=== PATIENT | male | born 1975 | race Caucasian/White ===

== ENCOUNTER 2021-05-08 18:13 | Emergency (ER) | payer OTHER ==
[~2021-05-08] VITALS: Ht 172.7 cm; Wt 81.7 kg
[~2021-05-08 18:13] MED LIST: ACETAMINOPHEN-1 EAC1 PO; CEPHALEXIN 500500 M3 PO
[2021-05-08 19:36] LABS: ABSOLUTE BASOPHILS 0.1 thou/uL (0.0-0.2); ABSOLUTE EOSINOPHILS 0.1 thou/uL (0.0-0.7); ABSOLUTE LYMPHOCYTES 1.9 thou/uL (0.8-5.3); ABSOLUTE MONOCYTES 0.6 thou/uL (0.0-1.2); ABSOLUTE NEUTROPHILS 6.5 thou/uL (1.6-8.1); BASOPHILS 0.9 %; EOSINOPHILS 1.4 %; HEMATOCRIT 45.1 % (42.0-52.0); HEMOGLOBIN 14.9 gm/dL (14.0-18.0); LYMPHOCYTES 20.7 %; MCH 30.8 pg (26.0-34.0); MCHC 33.1 g/dL (28.0-37.0); MCV 93.1 fL (80.0-100.0); MONOCYTES 6.7 %; MPV 9.1 fl. (7.2-11.1); NUCLEATED RBCS 0 /100WBC; PLATELET COUNT* 159 thou/uL (150-400); POLYS 70.3 %; RBC 4.84 mil/uL (4.50-6.00); RDW-CV 14.9 % (10.5-14.5); WBC 9.2 thou/uL (4.0-11.0)
[2021-05-08 19:37] LABS: URINE BILIRUBIN NEGATIVE (Negative); URINE BLOOD NEGATIVE (Negative); URINE CLARITY CLEAR; URINE COLOR YELLOW; URINE GLUCOSE-RANDOM 3+ (Negative); URINE KETONES NEGATIVE (Negative); URINE LEUKOCYTES-REFLEX NEGATIVE (Negative); URINE NITRITE-REFLEX NEGATIVE (Negative); URINE PROTEIN TRACE (Negative); URINE SPECIFIC GRAVITY 1.015 (1.005-1.030)
[2021-05-08 19:39] LABS: AMP/METHAMP Negative (Negative); BARBITURATES Negative (Negative); BENZODIAZEPINES Negative (Negative); COCAINE Negative (Negative); METHADONE Negative (Negative); OPIATES Negative (Negative); PCP Negative (Negative); THC POSITIVE (Negative)
[2021-05-08 19:54] LABS: CALCIUM 8.5 mg/dL (8.5-10.1); CREATININE 0.9 mg/dL (0.6-1.3); POTASSIUM 3.9 mmol/L (3.5-5.1)
[2021-05-08 19:59] LABS: ALBUMIN 3.4 g/dL (3.4-5.0); TOTAL BILIRUBIN 0.8 mg/dL (<0.1-1.0); TOTAL PROTEIN 8.4 g/dL (6.4-8.2)
[2021-05-08 21:00] VITALS: BP 154/79
[2021-05-09] MEDS ORDERED: CIPRO500 M1 PO (11:31)
== END 2021-05-08 21:00 | disposition left against medical advice (07) ==
LOC: M.ERS 18:13
PROVIDERS: Nurse Practitioner Family
DX: R10.84 Generalized abdominal pain (principal); K70.30 Alcoholic cirrhosis of liver without ascites; R11.0 Nausea; F17.210 Nicotine dependence, cigarettes, uncomplicated; E11.9 Type 2 diabetes mellitus without complications

== ENCOUNTER 2021-05-09 10:09 | Emergency (ER) | payer OTHER ==
[~2021-05-09] VITALS: Ht 172.7 cm; Wt 81.7 kg
[2021-05-09 11:11] LABS: ABSOLUTE BASOPHILS 0.1 thou/uL (0.0-0.2); ABSOLUTE EOSINOPHILS 0.1 thou/uL (0.0-0.7); ABSOLUTE LYMPHOCYTES 1.4 thou/uL (0.8-5.3); ABSOLUTE MONOCYTES 0.7 thou/uL (0.0-1.2); ABSOLUTE NEUTROPHILS 5.8 thou/uL (1.6-8.1); BASOPHILS 0.6 %; EOSINOPHILS 1.5 %; HEMATOCRIT 42.7 % (42.0-52.0); HEMOGLOBIN 14.1 gm/dL (14.0-18.0); LYMPHOCYTES 17.6 %; MCH 30.8 pg (26.0-34.0); MCHC 33.2 g/dL (28.0-37.0); MCV 92.8 fL (80.0-100.0); MONOCYTES 8.7 %; MPV 9.2 fl. (7.2-11.1); NUCLEATED RBCS 0 /100WBC; PLATELET COUNT* 129 thou/uL (150-400); POLYS 71.6 %; RDW-CV 14.8 % (10.5-14.5); WBC 8.1 thou/uL (4.0-11.0)
[2021-05-09 11:22] LABS: CALCIUM 8.2 mg/dL (8.5-10.1); CREATININE 0.8 mg/dL (0.6-1.3); POTASSIUM 4.1 mmol/L (3.5-5.1)
[2021-05-09 11:26] LABS: ALBUMIN 3.1 g/dL (3.4-5.0); TOTAL PROTEIN 7.7 g/dL (6.4-8.2)
[2021-05-09] MEDS ORDERED: CIPRO500 M1 PO (11:31)
[2021-05-09 12:00] VITALS: BP 169/111
== END 2021-05-09 12:03 | disposition home or self-care (01) ==
LOC: M.ERS 10:09
PROVIDERS: Physician Assistant
DX: R10.31 Right lower quadrant pain (principal); R11.2 Nausea with vomiting, unspecified; E11.9 Type 2 diabetes mellitus without complications; F17.210 Nicotine dependence, cigarettes, uncomplicated; Z88.0 Allergy status to penicillin

== ENCOUNTER 2021-05-12 08:21 | Emergency (ER) | payer OTHER ==
[~2021-05-12] VITALS: Ht 172.7 cm; Wt 81.7 kg
[~2021-05-12 08:21] MED LIST changes: +CIPRO500 M1 PO
[2021-05-12 08:29] VITALS: BP 154/103
[2021-05-12 09:01] LABS: ABSOLUTE BASOPHILS 0.1 thou/uL (0.0-0.2); ABSOLUTE EOSINOPHILS 0.3 thou/uL (0.0-0.7); ABSOLUTE LYMPHOCYTES 2.3 thou/uL (0.8-5.3); ABSOLUTE NEUTROPHILS 8.8 thou/uL (1.6-8.1); BASOPHILS 0.5 %; EOSINOPHILS 2.1 %; HEMATOCRIT 41.6 % (42.0-52.0); LYMPHOCYTES 18.5 %; MCHC 33.6 g/dL (28.0-37.0); MCV 92.3 fL (80.0-100.0); MONOCYTES 7.9 %; MPV 9.4 fl. (7.2-11.1); NUCLEATED RBCS 0 /100WBC; PLATELET COUNT* 155 thou/uL (150-400); RDW-CV 14.6 % (10.5-14.5); WBC 12.4 thou/uL (4.0-11.0)
[2021-05-12 09:05] LABS: CALCIUM 8.4 mg/dL (8.5-10.1); CREATININE 0.9 mg/dL (0.6-1.3); POTASSIUM 4.4 mmol/L (3.5-5.1)
[2021-05-12 09:09] LABS: ALBUMIN 3.3 g/dL (3.4-5.0); TOTAL BILIRUBIN 1.2 mg/dL (<0.1-1.0); TOTAL PROTEIN 8.2 g/dL (6.4-8.2)
[2021-05-12 10:29] LABS: URINE BILIRUBIN NEGATIVE (Negative); URINE BLOOD NEGATIVE (Negative); URINE CLARITY CLEAR; URINE COLOR YELLOW; URINE GLUCOSE-RANDOM 3+ (Negative); URINE KETONES NEGATIVE (Negative); URINE LEUKOCYTES-REFLEX NEGATIVE (Negative); URINE NITRITE-REFLEX NEGATIVE (Negative); URINE PROTEIN NEGATIVE (Negative); URINE SPECIFIC GRAVITY 1.015 (1.005-1.030)
[2021-05-12 11:03] VITALS: BP 145/64
--- NOTE | 2021-05-12 15:28 | EKG ---
[place] [address] ELECTROCARDIOGRAM REPORT Name: JANET JACKSON LIZY Room: [facility]#: [id number] Admission: 05/12/21 Attend Phys: Discharge: 05/12/21 Date of : 71 Date of Service: 05/12/21899 Report #: [id number] THIS REPORT FOR: //name// [facility] ED Test Date: 2021-05-12 Test Time: 09:00:41 Pat Name: JANET JACKSON Department: Room: [facility] Gender: M Product Picker: TDS : 1975 Requested By: Jean-Paul Mccullough Order Number: [id number] MD: Dayday Montoya Measurements Intervals [place] Rate: 104 P: 66 GA: 150 QRS: -8 QRSD: 86 T: 76 QT: 367 QTc: 483 Interpretive Statements Sinus tachycardia Right atrial enlargement Borderline prolonged QT interval Baseline wander in lead(s) V1,V2,V4,V6 No previous ECG available for comparison Electronically Signed On 05-12-2021 15:28:24 CDT by Dayday Montoya [email or web address] <ELECTRONICALLY SIGNED> By: Dayday Montoya MD, FAC 05/12/21 1528 09 09 Dayday Montoya MD, [facility] /EPI
[2021-05-13] MEDS ORDERED: METFORMIN HCL500 M3 PO (01:52)
== END 2021-05-12 11:05 | disposition left against medical advice (07) ==
LOC: M.ERS 08:21 → M.TBA-ER 10:44 → M.ERS 10:44
PROVIDERS: Emergency Medicine Emergency Medical Services
DX: K92.2 Gastrointestinal hemorrhage, unspecified (principal); R11.2 Nausea with vomiting, unspecified; E11.9 Type 2 diabetes mellitus without complications; F10.10 Alcohol abuse, uncomplicated; F12.90 Cannabis use, unspecified, uncomplicated; F17.210 Nicotine dependence, cigarettes, uncomplicated; Z79.899 Other long term (current) drug therapy; Z88.0 Allergy status to penicillin

== ENCOUNTER 2021-05-12 21:19 | Inpatient (IN) | payer OTHER ==
[~2021-05-12] VITALS: Ht 172.7 cm; Wt 81.6 kg
--- NOTE | ~2021-05-12 | PROC ---
[facility] [address] [place] [address] PROCEDURE REPORT Name: JANET JACKSON LIZY Room: [address] ADM IN M.R.#: [id number] Admission: 05/12/21 Attend Phys: Jeannine Silva Discharge: Date of : 71 Report #: [id number] THIS REPORT FOR: cc: FAM - No family physician/PCP FAM - No family physician/PCP [facility],Medical Records Staff ~ For GI report, please see the Provation report in Perceptive 7 content. By: [id number] Records Staff KRISTEN /JOSE ALBERTO
[2021-05-12 21:27] VITALS: BP 146/105
[2021-05-12 22:20] LABS: ABSOLUTE BASOPHILS 0.1 thou/uL (0.0-0.2); ABSOLUTE EOSINOPHILS 0.3 thou/uL (0.0-0.7); ABSOLUTE LYMPHOCYTES 2.6 thou/uL (0.8-5.3); ABSOLUTE MONOCYTES 0.8 thou/uL (0.0-1.2); ABSOLUTE NEUTROPHILS 9.9 thou/uL (1.6-8.1); BASOPHILS 0.7 %; EOSINOPHILS 1.9 %; HEMATOCRIT 38.4 % (42.0-52.0); HEMOGLOBIN 12.8 gm/dL (14.0-18.0); LYMPHOCYTES 18.8 %; MCH 30.7 pg (26.0-34.0); MCHC 33.3 g/dL (28.0-37.0); MCV 92.2 fL (80.0-100.0); MONOCYTES 6.1 %; MPV 9.3 fl. (7.2-11.1); NUCLEATED RBCS 0 /100WBC; PLATELET COUNT* 158 thou/uL (150-400); POLYS 72.5 %; RBC 4.16 mil/uL (4.50-6.00); RDW-CV 14.5 % (10.5-14.5); WBC 13.6 thou/uL (4.0-11.0)
[2021-05-12 22:32] LABS: CALCIUM 7.8 mg/dL (8.5-10.1); CREATININE 0.8 mg/dL (0.6-1.3); POTASSIUM 3.8 mmol/L (3.5-5.1)
[2021-05-12 22:36] LABS: APTT 25.3 Seconds (25.0-31.3); INR 1.1
[2021-05-12 22:42] LABS: MAGNESIUM 1.9 mg/dL (1.8-2.4); TOTAL BILIRUBIN 1.2 mg/dL (<0.1-1.0); TOTAL PROTEIN 7.5 g/dL (6.4-8.2)
[2021-05-13] VITALS (7 sets, daily range): BP systolic 134–164; BP diastolic 87–110
[2021-05-13] MEDS ORDERED: METFORMIN HCL500 M3 PO (01:52)
--- NOTE | 2021-05-13 02:37 | NUR ---
Patient arrived in the unit approximately 0118 via cart. Patient alert. Stand by assist with ambulation. Patient oriented to room and use of call light. Nursing assessment completed. Will continue to care.
[2021-05-13 12:01] LABS: HEMATOCRIT 34.2 % (42.0-52.0); HEMOGLOBIN 11.2 gm/dL (14.0-18.0)
[2021-05-13 12:30] LABS: ABSOLUTE BASOPHILS 0.1 thou/uL (0.0-0.2); ABSOLUTE EOSINOPHILS 0.2 thou/uL (0.0-0.7); ABSOLUTE LYMPHOCYTES 1.6 thou/uL (0.8-5.3); ABSOLUTE MONOCYTES 0.5 thou/uL (0.0-1.2); ABSOLUTE NEUTROPHILS 6.2 thou/uL (1.6-8.1); BASOPHILS 0.6 %; HEMATOCRIT 33.9 % (42.0-52.0); HEMOGLOBIN 11.2 gm/dL (14.0-18.0); LYMPHOCYTES 18.7 %; MCH 30.8 pg (26.0-34.0); MCHC 33.2 g/dL (28.0-37.0); MCV 92.8 fL (80.0-100.0); MONOCYTES 5.8 %; MPV 8.7 fl. (7.2-11.1); NUCLEATED RBCS 0 /100WBC; PLATELET COUNT* 118 thou/uL (150-400); POLYS 72.9 %; RBC 3.65 mil/uL (4.50-6.00); RDW-CV 14.5 % (10.5-14.5); WBC 8.5 thou/uL (4.0-11.0)
[2021-05-13 12:38] LABS: CALCIUM 7.8 mg/dL (8.5-10.1); CREATININE 0.9 mg/dL (0.6-1.3)
[2021-05-13 12:51] LABS: ALBUMIN 2.8 g/dL (3.4-5.0); TOTAL BILIRUBIN 0.9 mg/dL (<0.1-1.0); TOTAL PROTEIN 6.8 g/dL (6.4-8.2)
--- NOTE | 2021-05-13 13:10 | NUR ---
Pt unable to be aroused at this time, message left for emergency contact. Per chart review, Pt is normally independent. Hx of ETOH. Pt left AMA from ED yesterday. Pt pay, Med Assist to screen. Pt will need EGD once able to consent, Pt is vomitting up blood.
--- NOTE | 2021-05-13 16:40 | CON ---
[address] [address] CONSULTATION Name: JANET JACKSON Room: [address] ADM IN M.R.#: [id number] Admission: 05/12/21 Attend Phys: Jeannine Silva Discharge: Date of : 71 Report #: [id number] THIS REPORT FOR: cc: FAM - No family physician/PCP FAM - No family physician/PCP Marc Pedersen DO ~ DATE OF CONSULTATION: 05/13/2021 The patient does not have a PCP. Please note at the time of this dictation, the patient was seen and physically examined by myself. REASON FOR CONSULTATION: GI bleed. HISTORY OF PRESENT ILLNESS: This is a 45-year-old male who has had multiple ER visits in the last 3 days. He was seen on the 05/08 for abdominal pain and went home. He again was seen on the for similar findings. He went home and then again on the morning of the , he did not want to stay and he discharged himself, so he could go back home and drink and he started vomiting again and noted he was having black stools, so he came back into the hospital. The patient had a CT scan done on the , but he left AMA prior to getting his results, which showed some nodularity of his liver with fatty infiltrations noted. No evidence of any ductal dilatation. Gallbladder, spleen and pancreas, adrenals appear unremarkable. He has some diverticular disease noted throughout the colon, otherwise negative, that was done on the . The patient is unable to tell us on his vomitus as to if there is any bright red blood or any coffee-ground emesis. However, it was noted that he had black stools. It appears that the patient drinks regularly about a pint a day and also smokes marijuana on a regular basis. Unable to get much history from the patient due to the effects of the Ativan and he is completely out of it and barely opens his eyes with stimulation and in talking to him and then falls right back to sleep. All the information has been obtained basically from the chart. PAST MEDICAL HISTORY: Diabetes and cirrhosis. ALLERGIES: PENICILLIN. MEDICATIONS FROM HOME: It appears he has been on Cipro for 5 days. PAST SURGICAL HISTORY: None. FAMILY HISTORY: Unable to obtain. SOCIAL HISTORY: He does smoke cigarettes. He uses a pint of [place] [address] CONSULTATION Name: JANET JACKSON LIZY Room: [address] IN [facility]#: [id number] Admission: 05/12/21 Attend Phys: Jeannine Silva Discharge: Date of : 71 Report #: [id number] smokes marijuana on a regular basis. REVIEW OF SYSTEMS: 12-point review of systems is essentially negative except what is mentioned in the HPI. PHYSICAL EXAMINATION: VITAL SIGNS: Temperature 36.2, pulse 101, respirations are 18, blood pressure 142/87. HEART: Regular rate and rhythm, but slightly tachycardic at rest. LUNGS: Diminished. ABDOMEN: Soft, positive bowel sounds in all 4 quadrants with some slight distention noted, but no pain elicited. LABORATORY DATA: It appears on the , his hemoglobin was 14.9, he is 12.8 on this admission, white count is 13.6 and platelets are 158. PT is 12, INR is 1.1, BUN is 28, creatinine 0.8. It appears on the , his BUN was only 9 and then the morning of the , it was 25 and in the evening of the , it was 28. No labs have been done this a.m. Total bilirubin 1.2 and was normal on the and 08 of May, alkaline phosphatase was elevated on prior admissions, but it is 211 at this time. ALT elevated on previous admissions. It is currently 60, AST elevated on previous admissions, 79 for a high, it is currently 57. His lipase level is normal. Ammonia is 88. Albumin is 3, total protein is 7.5. CTA done, negative. IMPRESSION: 1. Nausea and vomiting, resolved. 2. Melanotic stool per the patient. 3. Alcoholic cirrhosis. 4. Hepatic encephalopathy, elevated ammonia 88. 5. Alcohol withdrawal. 6. History of alcohol abuse and THC regularly. PLAN: 1. EGD timing to be determined once the patient is able to wake up. 2. Protonix drip IV. 3. We will need to do lactulose to help with his ammonia level once the patient is able to take oral medications. 4. Ultrasound with Dopplers of the abdomen. 5. Acute hepatitis panel and AFP this a.m. 6. Labs, CBC, CMP, PT, INR tomorrow. 7. Further recommendations to be made after Dr. Pedersen sees the patient and see if he is more awake at that particular time. [address] [address] CONSULTATION Name: JANET JACKSON Room: M214-P ADM IN M.R.#: [id number] Admission: 05/12/21 Attend Phys: Jeannine Silva Discharge: Date of : 71 Report #: [id number] Thank you for allowing us to participate in this patient's care. Please do not hesitate to call with any questions regarding this consult. <ELECTRONICALLY SIGNED> By: Marc Pedersen DO 05/13/21 1640 0836 0850Marc Pedersen DO /damian
--- NOTE | 2021-05-13 17:05 | EKG ---
[place] [address] ELECTROCARDIOGRAM REPORT Name: JANET JACKSON Room: [address] ADM IN M.R.#: [id number] Admission: 05/12/21 Attend Phys: Gavin Andino Discharge: Date of : 71 Date of Service: 05/12/212215 Report #: [id number] THIS REPORT FOR: //name// [place] ED Test Date: 2021-05-12 Test Time: 22:16:12 Pat Name: JANET JACKSON Department: Room: [facility] Gender: M Bilingual School Psychologist: BELLO : 1975 Requested By: Veronika Jacob Order Number: [id number] MD: Ja Posada Measurements Intervals [place] Rate: 110 P: 17 OR: 146 QRS: -13 QRSD: 91 T: 64 QT: 359 QTc: 486 Interpretive Statements Sinus tachycardia LVH by voltage Borderline prolonged QT interval Compared to ECG 05/12/2021 09:00:41 Left ventricular hypertrophy now present Atrial abnormality no longer present Electronically Signed On 05-13-2021 17:05:16 CDT by Ja Posada [email or web address] <ELECTRONICALLY SIGNED> By: Ja Posada MD, [facility] 05/13/21 1705 15 15 Ja Posada MD, [facility] /EPI
[2021-05-14] VITALS: BP 156/100
[2021-05-14 04:00] VITALS: BP 147/100
[2021-05-14 04:59] LABS: HEMATOCRIT 31.4 % (42.0-52.0); HEMOGLOBIN 10.5 gm/dL (14.0-18.0); MCHC 33.3 g/dL (28.0-37.0); MCV 93.1 fL (80.0-100.0); MPV 9.2 fl. (7.2-11.1); RBC 3.37 mil/uL (4.50-6.00); RDW-CV 14.8 % (10.5-14.5); WBC 7.8 thou/uL (4.0-11.0)
[2021-05-14 05:13] LABS: INR 1.1; PROTIME 11.4 Seconds (9.20-11.50)
[2021-05-14 05:16] LABS: ALBUMIN 2.6 g/dL (3.4-5.0); CALCIUM 7.7 mg/dL (8.5-10.1); CREATININE 0.9 mg/dL (0.6-1.3); POTASSIUM 3.9 mmol/L (3.5-5.1); TOTAL BILIRUBIN 0.7 mg/dL (<0.1-1.0); TOTAL PROTEIN 6.6 g/dL (6.4-8.2)
[2021-05-14 07:49] VITALS: BP 119/51; BP 150/111
--- NOTE | 2021-05-14 07:49 | NUR ---
PT IS ABLE TO COMMUNICATE HIS NEEDS TO STAFF EFFECTIVELY. CURRENT PAIN MEDICATION REGIMEN HAS BEEN ADEQUATE FOR CONTROLLING HIS PAIN UP TO 0700 TODAY. POSSIBLE DISCHARGE SOON.
[2021-05-14] MEDS ORDERED: PROTONIX40 M2 PO (10:18)
[2021-05-14 10:52] VITALS: BP 119/51
--- NOTE | 2021-05-14 12:25 | NUR ---
PATIENT DISCHARGED IN STABLE CONDTION. VERBALIZED UNDERSTANDING OF INSTRUCTIONS. PERSCRIPTIONS PROVIDED. BELONGINGS WITH PATIENT AT DISCHARGE.
--- NOTE | 2021-05-14 13:40 | NUR ---
Pt to dc to home today, no needs.
== END 2021-05-14 12:15 | disposition home or self-care (01) | DRG 368 ==
LOC: M.ERS 21:19 → M.TBA-ER 23:10 → M.2W 05-13 01:18
PROVIDERS: Family Medicine; Internal Medicine Gastroenterology; Nurse Practitioner Adult Health; Personal Emergency Response Attendant; ADMIT Internal Medicine; ATTEND Internal Medicine
PROC: 06L38CZ Occlusion of Esophageal Vein with Extraluminal Device, Via Natural or Artificial Opening Endoscopic (ICD-10-PCS; principal; 2021-05-13)
DX: I85.01 Esophageal varices with bleeding (principal); G93.41 Metabolic encephalopathy; E87.1 Hypo-osmolality and hyponatremia; F10.239 Alcohol dependence with withdrawal, unspecified; K76.6 Portal hypertension; E72.20 Disorder of urea cycle metabolism, unspecified; K72.90 Hepatic failure, unspecified without coma; K20.91 Esophagitis, unspecified with bleeding; Z20.822 Contact with and (suspected) exposure to COVID-19; K70.31 Alcoholic cirrhosis of liver with ascites; E11.9 Type 2 diabetes mellitus without complications; K31.89 Other diseases of stomach and duodenum; D69.6 Thrombocytopenia, unspecified; Z88.0 Allergy status to penicillin

== ENCOUNTER 2021-05-21 04:47 | Emergency (ER) | payer OTHER ==
[~2021-05-21] VITALS: Ht 172.7 cm; Wt 81.7 kg
[~2021-05-21 04:47] MED LIST changes: +METFORMIN HCL500 M3 PO; +PROTONIX40 M2 PO
[2021-05-21 05:07] VITALS: BP 165/109
== END 2021-05-21 08:11 | disposition home or self-care (01) ==
LOC: M.ERS 04:47
DX: K62.5 Hemorrhage of anus and rectum (principal); R42 Dizziness and giddiness; R10.9 Unspecified abdominal pain; Z53.21 Procedure and treatment not carried out due to patient leaving prior to being seen by health care provider

== ENCOUNTER 2021-05-28 00:07 | Emergency (ER) | payer OTHER ==
[~2021-05-28] VITALS: Ht 170.2 cm; Wt 81.7 kg
[2021-05-28 01:50] VITALS: BP 137/64
== END 2021-05-28 01:51 ==
LOC: M.ERS 00:07
DX: K70.30 Alcoholic cirrhosis of liver without ascites (principal); R19.7 Diarrhea, unspecified; E11.9 Type 2 diabetes mellitus without complications; F17.210 Nicotine dependence, cigarettes, uncomplicated; Z79.899 Other long term (current) drug therapy; Z88.0 Allergy status to penicillin

== ENCOUNTER 2021-05-31 05:57 | Inpatient (IN) | payer OTHER ==
[~2021-05-31] VITALS: Ht 172.7 cm; Wt 81.7 kg
[2021-05-31 06:17] VITALS: BP 172/108
[2021-05-31 06:56] LABS: ABSOLUTE BASOPHILS 0.1 thou/uL (0.0-0.2); ABSOLUTE EOSINOPHILS 0.1 thou/uL (0.0-0.7); ABSOLUTE LYMPHOCYTES 1.1 thou/uL (0.8-5.3); ABSOLUTE MONOCYTES 0.4 thou/uL (0.0-1.2); BASOPHILS 0.8 %; EOSINOPHILS 1.9 %; HEMATOCRIT 30.8 % (42.0-52.0); HEMOGLOBIN 10.3 gm/dL (14.0-18.0); LYMPHOCYTES 14.2 %; MCHC 33.3 g/dL (28.0-37.0); MCV 87.3 fL (80.0-100.0); MONOCYTES 5.1 %; MPV 8.9 fl. (7.2-11.1); NUCLEATED RBCS 0 /100WBC; PLATELET COUNT* 157 thou/uL (150-400); RBC 3.53 mil/uL (4.50-6.00); RDW-CV 16.5 % (10.5-14.5); WBC 7.6 thou/uL (4.0-11.0)
[2021-05-31 06:59] LABS: CALCIUM 8.8 mg/dL (8.5-10.1); CREATININE 0.9 mg/dL (0.6-1.3); POTASSIUM 4.3 mmol/L (3.5-5.1)
[2021-05-31 07:01] LABS: INR 1.1; PROTIME 11.5 Seconds (9.20-11.50)
[2021-05-31 07:04] LABS: ALBUMIN 3.2 g/dL (3.4-5.0); MAGNESIUM 1.9 mg/dL (1.8-2.4); TOTAL BILIRUBIN 1.1 mg/dL (<0.1-1.0); TOTAL PROTEIN 8.1 g/dL (6.4-8.2)
--- NOTE | 2021-05-31 08:41 | EKG ---
[place] [address] ELECTROCARDIOGRAM REPORT Name: JANET JACKSON Room: [place] [address] ADM IN ..#: [id number] Admission: 05/31/21 Attend Phys: Vivien Curtis, Discharge: Date of : 71 Date of Service: 05/31/21620 Report #: [id number] THIS REPORT FOR: //name// [facility] ED Test Date: 2021-05-31 Test Time: 06:21:21 Pat Name: JANET JACKSON Department: Room: [facility] Gender: M Transport Technician: ISAMAR : 1975 Requested By: Cynthia Frias Order Number: [id number] MD: Nahum Coulter Measurements Intervals [place] Rate: 97 P: 65 OK: 150 QRS: 4 QRSD: 94 T: 63 QT: 366 QTc: 465 Interpretive Statements Sinus rhythm left ventricular hypertrophy Consider right atrial enlargement Baseline wander in lead(s) V5,V6 Compared to ECG 05/12/2021 22:16:12 Sinus tachycardia no longer present Electronically Signed On 05-31-2021 8:41:01 CDT by Nahum Coulter [email or web address] <ELECTRONICALLY SIGNED> By: Nahum Coulter MD, FAC 05/31/21840 0 0 Nahum Coulter MD, FAC /EPI
[2021-05-31 10:30] VITALS: BP 144/102
--- NOTE | 2021-05-31 11:25 | NUR ---
PT REQUESTING TO LEAVE AMA. THIS NURSE TO PTS BEDSIDE, EXTENSIVE CONVERSTATION HAD TO REINFORCE TO PT THE IMPORTANCE OF STAYING IN THE HOSPITAL FOR FURTHER TREATMENT AND DIAGNOSIS OF CURRENT CONDITIONS. RISKS AND BENEFITS EXPLAINED. PT FIRMLY STATES THAT HE WILL NOT STAY IN THE HOSPITAL BECAUSE HE DOES NOT HAVE ANY INSURANCE AND CANNOT PAY FOR IT. PT HAS HAD MANY VISITS/ADMISSIONS LATELY FOR SAME COMPLAINTS AND LEAVES EACH TIME BEFORE TX IS COMPLETED. EXPLAINED TO PT THAT HE IS AT GREAT RISK OF DYING. PT VERBALIZES THAT HE UNDERSTANDS THIS RISK AND STILL WISHES TO LEAVE AMA. ALL FORMS SIGNED.
--- NOTE | 2021-05-31 12:30 | NUR ---
CM ASSESSED THE PT WHO INDICATED HE LIVES HOME WITH SANJEEV. PT INDICATED HE IS EMPLOYEED A [employer]AND[employer]ING AND THEREFORE WANTS AN ACUTE REHAB STAY FOR DETOX TO "DRY OUT." SHOT TERM & NOT A RESIDENTIAL. PT BELIEVES HE HAS "GOOD SUPPORT AT HOME" AND HE ATTENDS AA MTG 1X/WK. PT STOPPED DRINKING "COLD TURKEY FOR 4 DAYS AGO FOR ABOUT A DAY AND A HALF." PT DRINKS BTWN A PINT TO A 5TH OF "99 PROOF...VODKA / DAY. PT HAS NO DME. PT DENIES HX WITH SNF OR HH OR [facility] REHAB. CM RECEIVED CONSULT FROM [facility], FOR ALCOHOL REHAB PLACE. THEREFORE CM CONTACTED JAVIER FREITAS, WITH [facility]. JAVIER INTENDS TO FOLLOW PT AND VISIT PT OVER THE WEEKEND TO ASSIST WITH PLACEMENT.
--- NOTE | 2021-06-01 12:44 | CON ---
[address] [address] CONSULTATION Name: JANET JACKSON Room: [address] IN ..#: [id number] Admission: 05/31/21 Attend Phys: Vivien Curtis MD Discharge: 05/31/21 Date of : 71 Report #: [id number] THIS REPORT FOR: cc: FAM - No family physician/PCP FAM - No family physician/PCP Marc Pedersen DO ~ The patient does not have a PCP. Please note at the time of this dictation, the patient was seen and physically examined by myself. REASON FOR CONSULTATION: Hematemesis. HISTORY OF PRESENT ILLNESS: This is a 45-year-old male who presented back to the Emergency Room after being dismissed on May 14 for GI bleed secondary to grade 3 esophageal varices that were banded on May 13. The patient was sent home on Protonix, but he forgot to get that filled. He states prior to his last admission on the , he was drinking a fifth of vodka a day. Since his discharge on the , he has only been doing 1-2 airplane shots a day and trying to cut back. He states he is also working on alcohol rehab placement as well and wondering if we could help with that assistance. We will consult case management to help with this. The patient states he is really wanting to quit drinking. When the patient was admitted the last time, his hemoglobin was 14.9. Upon discharge, his hemoglobin was 10.5. Today on admission, he was 10.3. BUN was normal at 15. The last time on the when he went home, it was 20. He had an EGD that was performed by Dr. Pedersen on May 12 that showed portal hypertensive gastropathy and grade 3 esophageal varices that were banded. His ammonia level at that time was 88 and on discharge, he was 75. AFP on last admission was 4.1. ALLERGIES: No known drug allergies. MEDICATIONS FROM HOME: None. ALLERGIES: PENICILLIN. PAST MEDICAL HISTORY: Diabetes, alcohol abuse and alcoholic cirrhosis. PAST SURGICAL HISTORY: None. FAMILY HISTORY: Noncontributory. SOCIAL HISTORY: He does smoke. Alcohol use is one airplane shot daily and [place] [address] CONSULTATION Name: JANET JACKSON LIZY Room: [address]#: [id number] Admission: 05/31/21 Attend Phys: Vivien Curtis MD Discharge: 05/31/21 Date of : 71 Report #: [id number] REVIEW OF SYSTEMS: Twelve-point review of systems is essentially negative except what is mentioned in the HPI. PHYSICAL EXAMINATION: VITAL SIGNS: Temperature 36.9, pulse 91, respirations 22, and blood pressure 144/102. HEART: Regular rate and rhythm. LUNGS: Clear. ABDOMEN: Somewhat distended, but soft. Positive bowel sounds in all four quadrants with no masses or tenderness noted. LABORATORY DATA: Hemoglobin is 10.3, white count is 7.6, and platelets is 157. BUN is 15 and creatinine 0.9. GFR is 90. PT 11.5, INR is 1.1, total bili is 1.1, alk phos is 265, ALT is 66, and AST is 74. The patient underwent an abdominal ultrasound on May 13 that showed hepatosplenomegaly with nodular liver compatible with cirrhosis and he had a normal hepatic Doppler at that time. IMPRESSION: 1. Hematemesis. 2. Recent gastrointestinal bleed on May 13, underwent esophagogastroduodenoscopy, secondary findings grade 3 varices that were banded. 3. Alcoholic cirrhosis. 4. Anemia secondary to #1. 5. Alcohol abuse and tetrahydrocannabinol abuse. PLAN: 1. EGD today with Dr. Pedersen to re-evaluate banding sites. 2. Maintain the patient on Protonix and octreotide drips. 3. We will consult case management to help with rehabilitation for his alcohol abuse. 4. Further recommendations to be made after Dr. Pedersen sees the patient and performs the procedure. Thank you for allowing us to participate in this patient's care. Please do not hesitate to call with any questions regarding this consult. <ELECTRONICALLY SIGNED> By: Marc Pedersen DO 06/01/21 1244 0950 1050Marc Pedersen DO /nt
== END 2021-05-31 11:30 | disposition left against medical advice (07) | DRG 379 ==
LOC: M.ERS 05:57 → M.TBA-ER 06:23
PROVIDERS: Emergency Medicine; ADMIT Internal Medicine; ATTEND Internal Medicine
DX: K92.2 Gastrointestinal hemorrhage, unspecified (principal); K70.30 Alcoholic cirrhosis of liver without ascites; Z20.822 Contact with and (suspected) exposure to COVID-19; E11.9 Type 2 diabetes mellitus without complications; I10 Essential (primary) hypertension; Z53.29 Procedure and treatment not carried out because of patient's decision for other reasons